=== PATIENT | female | born 1990 | race Asian ===

== ENCOUNTER 2017-06-29 12:13 | Observation (INO) | payer OTHER ==
[~2017-06-29] VITALS: Ht 170.2 cm; Wt 64.9 kg
[2017-06-29 12:23] VITALS: BP 124/83
== END 2017-06-29 14:57 | disposition home or self-care (01) ==
LOC: MLD 12:13
PROVIDERS: ADMIT Obstetrics & Gynecology; ATTEND Obstetrics & Gynecology
DX: O46.92 Antepartum hemorrhage, unspecified, second trimester (principal); Z3A.27 27 weeks gestation of pregnancy
CPT/HCPCS: 36415; 76805; 81000; 86886; 86900; 86901; G0378; Q0092

== ENCOUNTER 2017-07-18 05:34 | Observation (INO) | payer OTHER ==
[~2017-07-18] VITALS: Ht 170.2 cm; Wt 65.8 kg
[2017-07-18] MEDS ORDERED: LACTATED RINGERS 1,000 ML IV SCH (06:10)
[2017-07-18] MEDS ORDERED: TERBUTALINE 1 MG/ML VIAL SUBQ SCH (06:10)
[2017-07-18] MEDS ORDERED: FERR-252 PO (06:13)
[2017-07-18] MEDS ORDERED: PREN-546 PO (06:13)
[2017-07-18] MEDS ORDERED: TERBUTALINE 1 MG/ML VIAL SUBQ ONE (06:18)
[2017-07-18] MEDS ORDERED: BETAMETH ACET/BETAMETH NA PH 30 MG/5 ML VIAL IM ONE ×2 (06:59→18:39)
[2017-07-18 07:04] LABS: BILIRUBIN,URINE NEGATIVE (NEGATIVE); BLOOD, URINE NEGATIVE (NEGATIVE); COLOR,URINE YELLOW (YELLOW); LEUKOCYTE ESTERASE ,URINE 2+ (NEGATIVE); NITRITE, URINE NEGATIVE (NEGATIVE); UGLUCOSE NEGATIVE (NEGATIVE)
[2017-07-18 07:07] LABS: APPEARANCE,URINE SLIGHTLY HAZY (CLEAR)
[2017-07-18 07:18] VITALS: BP 118/77
[2017-07-18 07:33] LABS: RBC,URINE 0-5 (RARE) /HPF (0-5); WBC,URINE 6-15 (FEW) /HPF (0-5)
[2017-07-18] MEDS ORDERED: AMPICILLIN 2,000 MG VIAL ONE ×4 (08:25→18:39)
[2017-07-18] MEDS ORDERED: BETAMETH ACET/BETAMETH NA PH 30 MG/5 ML VIAL IM SCH (09:00)
[2017-07-18] MEDS ORDERED: TERBUTALINE 2.5 MG TAB PO SCH (10:00)
[2017-07-18] MEDS ORDERED: TERBUTALINE 2.5 MG TAB ONE ×2 (10:14→16:30)
[2017-07-18] MEDS ORDERED: AMPICILLIN 2,000 MG in NACL 0.9% 100 ML IV SCH (12:00)
== END 2017-07-18 20:10 | disposition home or self-care (01) ==
LOC: MLD 05:34
PROVIDERS: ADMIT Obstetrics & Gynecology; ATTEND Obstetrics & Gynecology
DX: O62.9 Abnormality of forces of labor, unspecified (principal); Z3A.30 30 weeks gestation of pregnancy
CPT/HCPCS: 36415; 81001; 82731; 87086; 96361; 96365; 96372; G0378; J0290; J0702; J3105; J7120

== ENCOUNTER 2017-07-30 13:45 | Observation (INO) | payer OTHER ==
[~2017-07-30] VITALS: Ht 170.2 cm; Wt 66.7 kg
[~2017-07-30 13:45] MED LIST: FERR-252 PO; PREN-546 PO
== END 2017-07-30 17:00 | disposition home or self-care (01) ==
LOC: MLD 13:45
PROVIDERS: ADMIT Obstetrics & Gynecology; ATTEND Obstetrics & Gynecology
DX: O26.893 Other specified pregnancy related conditions, third trimester (principal); R10.9 Unspecified abdominal pain; Z3A.32 32 weeks gestation of pregnancy
CPT/HCPCS: 76805; G0378; Q0092

== ENCOUNTER 2017-09-13 11:55 | Inpatient (IN) | payer OTHER ==
[~2017-09-13] VITALS: Ht 170.2 cm; Wt 70.3 kg
[2017-09-13] MEDS ORDERED: LACTATED RINGERS 1,000 ML IV SCH (12:22)
[2017-09-13] MEDS ORDERED: METHYLERGONOVINE 0.2 MG/ML AMP IM PRN ×2 (12:25→18:20)
[2017-09-13] MEDS ORDERED: NALBUPHINE 10 MG/ML AMP IVP PRN (12:25)
[2017-09-13] MEDS ORDERED: PROMETHAZINE 25 MG/ML VIAL IVP PRN (12:25)
[2017-09-13 12:46] VITALS: BP 138/91
[2017-09-13 12:56] LABS: BASOPHILS % (AUTO) 0.5 % (0.0-2.0); EOSINOPHILS % (AUTO) 0.1 % (0.0-4.0); HEMOGLOBIN 13.3 g/dL (12.0-16.0); LYMPHOCYTES # (AUTO) 1.5 K/uL (2.5-16.5); LYMPHOCYTES % (AUTO) 15.8 % (20.5-51.1); MEAN CORPUSCULAR HEMOGLOBIN 28 pg (27-31); MEAN CORPUSCULAR HGB CONC 33 g/dL (33-37); MEAN CORPUSCULAR VOLUME 85.4 fL (80-94); MONOCYTES # (AUTO) 0.6 K/uL (0.8-1.0); MONOCYTES % (AUTO) 5.8 % (1.7-9.3); NEUTROPHILS # (AUTO) 7.6 K/uL (1.8-7.7); NEUTROPHILS % (AUTO) 77.8 % (42.2-75.2); PLATELET COUNT (AUTO) 182 K/uL (140-450); RED BLOOD CELL COUNT(AUTO) 4.68 MIL/uL (4.20-5.40); RED CELL DISTRIBUTION WIDTH 14.9 % (11.6-13.7); WHITE BLOOD COUNT (AUTO) 9.7 K/uL (4.8-10.8)
[2017-09-13 12:59] LABS: APPEARANCE,URINE HAZY (CLEAR); BILIRUBIN,URINE NEGATIVE (NEGATIVE); BLOOD, URINE NEGATIVE (NEGATIVE); COLOR,URINE YELLOW (YELLOW); LEUKOCYTE ESTERASE ,URINE 1+ (NEGATIVE); NITRITE, URINE NEGATIVE (NEGATIVE); UGLUCOSE NEGATIVE (NEGATIVE)
[2017-09-13 13:09] LABS: ANION GAP 15.6 (8-16); CARBON DIOXIDE 22.3 mmol/L (21-32); CREATININE 0.8 mg/dL (0.6-1.3); POTASSIUM 3.9 mmol/L (3.5-5.1)
[2017-09-13] MEDS ORDERED: OXYTOCIN 20 UNITS in LACTATED RINGERS 1,000 ML IV SCH (13:19)
[2017-09-13 13:30] LABS: RBC,URINE 3-10 (FEW) /HPF (0-5)
[2017-09-13] MEDS ORDERED: BUPIVACAINE 0.125%/NS PREMIX 250 ML ONE (13:32)
[2017-09-13 13:37] LABS: TOTAL BILIRUBIN 0.2 mg/dL (0.0-1.0)
[2017-09-13 14:40] LABS: RAPID PLASMA REAGIN NON-REACTIVE (Non Reactiv)
[2017-09-13] MEDS ORDERED: OXYTOCIN 10 UNITS/ML VIAL ONE (14:43)
[2017-09-13] MEDS ORDERED: AMPICILLIN 2,000 MG VIAL ONE (14:48)
[2017-09-13] MEDS ORDERED: IBUPROFEN 800 MG TAB PO PRN (18:20)
[2017-09-13] MEDS ORDERED: MEASLES, MUMPS, AND RUBELLA 1 VIAL SQVAC PRN (18:20)
[2017-09-13] MEDS ORDERED: OXYTOCIN 10 UNITS/ML VIAL IM PRN (18:20)
[2017-09-13] MEDS ORDERED: TEMAZEPAM 15 MG CAP PO PRN (18:20)
[2017-09-13] MEDS ORDERED: BENZOCAINE/MENTHOL 20%-0.5% 60 GM CAN TP PRN (18:20)
[2017-09-13] MEDS ORDERED: oxyCODONE/APAP 5/325 MG 1 TAB TAB PO PRN (18:20)
[2017-09-13] MEDS ORDERED: HYDROcodone/APAP 5/325 MG 1 TAB TAB PO PRN (18:20)
[2017-09-13] MEDS ORDERED: DOCUSATE SOD/SENNA 50/8.6 MG 1 TAB PO SCH (21:00)
[2017-09-14 06:37] LABS: HEMATOCRIT 36.6 % (36-48); HEMOGLOBIN 11.9 g/dL (12.0-16.0)
--- NOTE | 2017-09-14 10:57 | NUR ---
PATIENT HAS BEEN SCREENED AND CATEGORIZED LOW NUTRITION RISK. PATIENT WILL BE SEEN WITHIN 7 DAYS OF ADMISSION. 09/20/[address]
== END 2017-09-15 15:25 | disposition home or self-care (01) | DRG 775 ==
LOC: MLD 11:55 → OBSVTOIN 12:24 → MFCC 19:55
PROVIDERS: ADMIT Obstetrics & Gynecology; ATTEND Obstetrics & Gynecology
PROC: 3E0234Z Introduction of Serum, Toxoid and Vaccine into Muscle, Percutaneous Approach (ICD-10-PCS; principal; 2017-09-13)
PROC: 10E0XZZ Delivery of Products of Conception, External Approach (ICD-10-PCS; 2017-09-13)
PROC: 0KQM0ZZ Repair Perineum Muscle, Open Approach (ICD-10-PCS; 2017-09-13)
PROC: 3E0R3BZ Introduction of Anesthetic Agent into Spinal Canal, Percutaneous Approach (ICD-10-PCS; 2017-09-13)
PROC: 00HU33Z Insertion of Infusion Device into Spinal Canal, Percutaneous Approach (ICD-10-PCS; 2017-09-13)
DX: O77.0 Labor and delivery complicated by meconium in amniotic fluid (principal); Z23 Encounter for immunization; O69.1XX0 Labor and delivery complicated by cord around neck, with compression, not applicable or unspecified; O70.1 Second degree perineal laceration during delivery; Z3A.38 38 weeks gestation of pregnancy; Z37.0 Single live birth
CPT/HCPCS: 36415; 51702; 59409; 80053; 81001; 85018; 85025; 86592; 86886; 86900; 86901; 87086; 90715; G0378; J0290; J2590; J3490; J7120